=== PATIENT | female | born 1965 | race Caucasian/White ===

== ENCOUNTER 2016-12-30 07:55 | Emergency (ER) | payer OTHER ==
[~2016-12-30 07:55] MED LIST: AMARYL2 MG PO; CEFDINIR300 MG PO; CLARITIN10 MG PO; COLACE100 MG PO; DESYREL50 MG PO; ELAVIL25 MG PO; GLUCOPHAGE XR750 MG PO; IMITREX100 MG PO; LIPITOR10 MG PO; NEURONTIN300 MG PO; PRILOSEC40 MG PO; PROAIR HFA8.5 GM INH; SEROQUEL400 MG PO; SYMBICORT 1601 PUFFS INH; TOPAMAX50 MG PO; VISTARIL50 MG PO; VITAMIN D2000 UNI1 PO; ZANTAC150 MG PO; ZESTRIL10 MG PO; ZOFRAN4 MG PO
[2016-12-30 08:49] LABS: BILIRUBIN NEGATIVE (NEGATIVE); BLOOD 3+ Ery/uL (NEGATIVE); GLUCOSE (U) NORMAL (NORMAL); KETONE (U) NEGATIVE (NEGATIVE); LEUKOCYTES 1+ Leu/uL (NEGATIVE); NITRITE NEGATIVE (NEGATIVE); PROTEIN 1+ mg/dL (NEGATIVE); UROBILINOGEN 0.2 mg/dL (0.2-1.0)
[2016-12-30 08:50] LABS: CLARITY HAZY (CLEAR); COLOR AMBER (YELLOW)
[2016-12-30 08:56] LABS: BACTERIA TRACE; URINARY RBC TNTC
== END 2016-12-30 10:00 | disposition home or self-care (01) ==
LOC: FER 07:55
PROVIDERS: Internal Medicine
DX: R51 Headache (principal); F41.9 Anxiety disorder, unspecified; I10 Essential (primary) hypertension; E11.9 Type 2 diabetes mellitus without complications; J45.909 Unspecified asthma, uncomplicated; J44.9 Chronic obstructive pulmonary disease, unspecified; F17.200 Nicotine dependence, unspecified, uncomplicated; Z79.84 Long term (current) use of oral hypoglycemic drugs
CPT/HCPCS: 81001; 99284

== ENCOUNTER 2020-10-15 12:49 | Emergency (ER) | payer OTHER ==
[~2020-10-15 12:49] MED LIST changes: +AMLODIPINE BESYL5 MG PO; +ASPIRIN EC81 M1 PO; +ASPIRIN EC81 MG PO; +ATARAX25 MG PO; +ATORVASTATIN CA20 MG PO; +FIORICET1 EACH PO; +FLEXERIL10 MG PO; +GLIMEPIRIDE4 MG PO; +LIPITOR20 MG PO; +LOSARTAN-HCTZ1 EAC2 PO; +MEDROL 4MG DOSEP4 MG PO; +METFORMIN HCL1000 MG PO; +METOPROLOL SUCC25 MG PO; +METOPROLOL SUCC50 MG PO; +NORVASC 5MG TABL5 MG PO; +PRAVASTATIN SOD10 M1 PO; +TOPROL XL 25MG25 MG PO; +losartan/hctz PO
[2020-10-15 13:22] LABS: EOSINOPHIL 3.9 % (0-5); HCT 40.9 % (37.0-47.0); HGB 12.9 g/dl (12.5-16.0); LYMPHOCYTE 23.1 % (15-48); MCH 27.6 pg (25.0-31.0); MCHC 31.5 g/dL (32.0-36.0); MCV 87.4 fL (78.0-100.0); MONOCYTE 4.7 % (0-12); MPV 9.1 fL (6.0-9.5); NEUTROPHIL 66.7 % (41-80); NRBC 0; PLT 446 K/uL (150-400); RBC 4.68 M/uL (4.20-5.40); RDW 16.7 % (11.5-14.0); WBC 19.7 K/uL (4.0-10.5)
[2020-10-15 13:42] LABS: ALKALINE PHOSHATASE 95 U/L (46-116); ALT 16 U/L (14-59); AST 21 U/L (15-37); BILIRUBIN - TOTAL 0.2 mg/dL (0.2-1.0); BUN 15 mg/dL (7-18); BUN/CREAT RATIO (CALC) 20.3 RATIO; CHLORIDE 97 mmol/L (98-107); CO2 (BICARBONATE) 21 mmol/L (21-32); CREATININE 0.74 mg/dL (0.51-0.95); GLOBULIN (CALCULATION) 3.3 g/dL; GLUCOSE 141 mg/dL (74-106); POTASSIUM 4.2 mmol/L (3.5-5.1); TOTAL PROTEIN 6.3 g/dL (6.4-8.2)
[2020-10-15 13:47] LABS: INR 0.95 (0.9-1.2)
[2020-10-15 13:48] LABS: PTT 32.8 SECONDS (22.2-34.7)
[2020-10-15 13:55] LABS: BILIRUBIN NEGATIVE (NEGATIVE); BLOOD 2+ Ery/uL (NEGATIVE); CLARITY CLEAR (CLEAR); COLOR YELLOW (YELLOW); GLUCOSE (U) TRACE mg/dL (NORMAL); LEUKOCYTES NEGATIVE Leu/uL (NEGATIVE); NITRITE NEGATIVE (NEGATIVE); PROTEIN NEGATIVE (NEGATIVE); SPECIFIC GRAVITY <=1.005 (1.001-1.030); UROBILINOGEN 0.2 mg/dL (0.2-1.0)
[2020-10-15 14:04] LABS: URINARY RBC RARE; URINARY WBC RARE
[2020-10-15 14:05] LABS: AMPHETAMINES NEGATIVE (NEGATIVE); BARBITURATES NEGATIVE (NEGATIVE); ECSTASY (MDMA) NEGATIVE (NEGATIVE); MARIJUANA (THC) POSITIVE (NEGATIVE); METHADONE NEGATIVE (NEGATIVE); OPIATES NEGATIVE (NEGATIVE); OXYCODONE NEGATIVE (NEGATIVE)
[2020-10-15 14:14] LABS: LACTIC ACID 1.7 mmol/L (0.4-1.9)
== END 2020-10-15 16:55 | disposition home or self-care (01) ==
LOC: FER 12:49
PROVIDERS: Nurse Practitioner Family
DX: I95.9 Hypotension, unspecified (principal); R42 Dizziness and giddiness; F19.10 Other psychoactive substance abuse, uncomplicated; I10 Essential (primary) hypertension; E11.9 Type 2 diabetes mellitus without complications; J44.9 Chronic obstructive pulmonary disease, unspecified; E78.5 Hyperlipidemia, unspecified; F17.210 Nicotine dependence, cigarettes, uncomplicated; Z88.5 Allergy status to narcotic agent; Z79.84 Long term (current) use of oral hypoglycemic drugs; Z79.899 Other long term (current) drug therapy
CPT/HCPCS: 36415; 70450; 71046; 80053; 80305; 81001; 83605; 85025; 85610; 85730; 93005; G0480; J7030

== ENCOUNTER 2020-12-30 17:45 | Day surgery (SDCO) | payer OTHER ==
[~2020-12-30] VITALS: Ht 160 cm; Wt 70.3 kg
[2020-12-30 18:45] LABS: BASOPHIL 1.1 % (0-2); EOSINOPHIL 3.4 % (0-5); HCT 42.7 % (37.0-47.0); HGB 13.5 g/dl (12.5-16.0); LYMPHOCYTE 23.7 % (15-48); MCH 27.5 pg (25.0-31.0); MCHC 31.6 g/dL (32.0-36.0); MONOCYTE 5.8 % (0-12); MPV 9.1 fL (6.0-9.5); NEUTROPHIL 65.6 % (41-80); NRBC 0; PLT 482 K/uL (150-400); RBC 4.91 M/uL (4.20-5.40); RDW 17.5 % (11.5-14.0); WBC 9.2 K/uL (4.0-10.5)
[2020-12-30 19:04] LABS: ALBUMIN 3.1 g/dL (3.4-5.0); BILIRUBIN - TOTAL 0.2 mg/dL (0.2-1.0); BUN/CREAT RATIO (CALC) 11.4 RATIO; CREATININE 0.88 mg/dL (0.51-0.95); GLOBULIN (CALCULATION) 3.6 g/dL; TOTAL PROTEIN 6.7 g/dL (6.4-8.2)
[2020-12-30 19:16] LABS: LACTIC ACID 0.8 mmol/L (0.4-1.9)
[2020-12-30 19:22] LABS: BILIRUBIN NEGATIVE (NEGATIVE); BLOOD NEGATIVE Ery/uL (NEGATIVE); CLARITY CLEAR (CLEAR); COLOR YELLOW (YELLOW); GLUCOSE (U) 3+ mg/dL (NORMAL); LEUKOCYTES NEGATIVE Leu/uL (NEGATIVE); NITRITE NEGATIVE (NEGATIVE); PROTEIN NEGATIVE (NEGATIVE); SPECIFIC GRAVITY 1.015 (1.001-1.030); UROBILINOGEN 0.2 mg/dL (0.2-1.0); pH 6.5 (5.0-9.0)
[2020-12-30 19:30] LABS: INFLUENZA A NAA NEGATIVE (NEGATIVE)
[2020-12-30 19:33] LABS: CORONAVIRUS 2019 SARS-COV-2 POSITIVE (NEGATIVE)
[2020-12-30] MEDS ORDERED: METFORMIN HCL500 MG PO (22:45)
[2020-12-30] MEDS ORDERED: HYDROXYZINE HCL25 MG PO (22:45)
[2020-12-30] MEDS ORDERED: TRAZODONE 100M100 MG PO (22:46)
[2020-12-30] MEDS ORDERED: GLIMEPIRIDE4 MG PO (22:46)
[2020-12-30] MEDS ORDERED: PEPCID AC20 MG PO (22:46)
[2020-12-30] MEDS ORDERED: ZOLOFT50 MG PO (22:47)
[2020-12-30] MEDS ORDERED: PRILOSEC20 MG PO (22:47)
[2020-12-30] MEDS ORDERED: PHENERGAN12.5 M1 PO (22:47)
[2020-12-30] MEDS ORDERED: ONDANSETRON HCL4 MG PO (22:48)
[2020-12-30] MEDS ORDERED: COZAAR50 MG PO (22:49)
[2020-12-30] MEDS ORDERED: TOPIRAMATE100 MG PO (22:50)
[2020-12-31 06:59] LABS: BASOPHIL 1.1 % (0-2); EOSINOPHIL 3.9 % (0-5); HGB 11.6 g/dl (12.5-16.0); LYMPHOCYTE 27.6 % (15-48); MCH 27.5 pg (25.0-31.0); MCHC 29.7 g/dL (32.0-36.0); MONOCYTE 5.2 % (0-12); NEUTROPHIL 61.8 % (41-80); NRBC 0; PLT 377 K/uL (150-400); RBC 4.22 M/uL (4.20-5.40); RDW 17.5 % (11.5-14.0); WBC 9.4 K/uL (4.0-10.5)
[2020-12-31 07:03] LABS: MCV 92.4 fL (78.0-100.0)
[2020-12-31 07:14] LABS: ALBUMIN 2.4 g/dL (3.4-5.0); BILIRUBIN - TOTAL 0.1 mg/dL (0.2-1.0); BUN/CREAT RATIO (CALC) 14.7 RATIO; CREATININE 0.68 mg/dL (0.51-0.95); POTASSIUM 4.1 mmol/L (3.5-5.1); TOTAL PROTEIN 5.4 g/dL (6.4-8.2)
[2020-12-31] MEDS ORDERED: DEXAMETHASONE 2M2 MG PO (13:24)
== END 2020-12-31 14:40 | disposition home or self-care (01) ==
LOC: FER 17:45 → FMS 21:16
PROVIDERS: Nurse Practitioner; Nurse Practitioner Family; ADMIT Hospitalist
DX: U07.1 COVID-19 (principal); I95.9 Hypotension, unspecified; J43.9 Emphysema, unspecified; E11.9 Type 2 diabetes mellitus without complications; I10 Essential (primary) hypertension; G43.909 Migraine, unspecified, not intractable, without status migrainosus; E78.5 Hyperlipidemia, unspecified; F17.210 Nicotine dependence, cigarettes, uncomplicated; Z79.84 Long term (current) use of oral hypoglycemic drugs; Z79.899 Other long term (current) drug therapy; Z88.5 Allergy status to narcotic agent
CPT/HCPCS: 36415; 71045; 80053; 81003; 83605; 85025; 87040; 94010; 94640; C9399; G0378; J1100; J1650; J1885; J2405; J7030; J7050; M0245; U0002

== ENCOUNTER 2021-01-14 10:16 | Emergency (ER) | payer OTHER ==
[~2021-01-14 10:16] MED LIST changes: +COZAAR50 MG PO; +DEXAMETHASONE 2M2 MG PO; +HYDROXYZINE HCL25 MG PO; +METFORMIN HCL500 MG PO; +ONDANSETRON HCL4 MG PO; +PEPCID AC20 MG PO; +PHENERGAN12.5 M1 PO; +PRILOSEC20 MG PO; +TOPIRAMATE100 MG PO; +TRAZODONE 100M100 MG PO; +ZOLOFT50 MG PO
[2021-01-14 11:36] LABS: BASOPHIL 0.7 % (0-2); EOSINOPHIL 2.3 % (0-5); HGB 12.7 g/dl (12.5-16.0); LYMPHOCYTE 19.7 % (15-48); MCH 27.7 pg (25.0-31.0); MCHC 31.8 g/dL (32.0-36.0); MCV 87.3 fL (78.0-100.0); MONOCYTE 4.4 % (0-12); MPV 9.6 fL (6.0-9.5); NEUTROPHIL 71.4 % (41-80); NRBC 0; PLT 450 K/uL (150-400); RBC 4.58 M/uL (4.20-5.40); RDW 17.5 % (11.5-14.0); WBC 12.2 K/uL (4.0-10.5)
[2021-01-14 11:46] LABS: ALBUMIN 3.6 g/dL (3.4-5.0); BILIRUBIN - TOTAL 0.2 mg/dL (0.2-1.0); BUN/CREAT RATIO (CALC) 18.6 RATIO; CREATININE 0.86 mg/dL (0.51-0.95); GLOBULIN (CALCULATION) 3.8 g/dL; POTASSIUM 4.4 mmol/L (3.5-5.1); TOTAL PROTEIN 7.4 g/dL (6.4-8.2)
[2021-01-14 11:47] LABS: PRO-BNP 38 pg/mL (<125)
[2021-01-14 11:48] LABS: INR 0.9 (0.9-1.2); PROTHROMBIN TIME 11.5 SECONDS (11.4-13.6); PTT 30.7 SECONDS (22.2-34.7)
[2021-01-14] MEDS ORDERED: TOPROL XL 25MG25 MG PO (14:59)
== END 2021-01-14 15:29 | disposition home or self-care (01) ==
LOC: FER 10:16
PROVIDERS: Emergency Medicine
DX: I95.9 Hypotension, unspecified (principal); R00.0 Tachycardia, unspecified; R00.2 Palpitations; E11.9 Type 2 diabetes mellitus without complications; J44.9 Chronic obstructive pulmonary disease, unspecified; Z88.5 Allergy status to narcotic agent; Z88.6 Allergy status to analgesic agent
CPT/HCPCS: 36415; 71275; 80053; 83880; 84145; 84443; 84484; 85025; 85610; 85730; 93005; J2405; J7030; Q9967

== ENCOUNTER 2021-01-19 18:55 | Emergency (ER) | payer OTHER ==
[2021-01-19 20:31] LABS: BILIRUBIN NEGATIVE (NEGATIVE); BLOOD NEGATIVE Ery/uL (NEGATIVE); CLARITY CLEAR (CLEAR); COLOR YELLOW (YELLOW); GLUCOSE (U) 3+ mg/dL (NORMAL); LEUKOCYTES NEGATIVE Leu/uL (NEGATIVE); NITRITE NEGATIVE (NEGATIVE); PROTEIN NEGATIVE (NEGATIVE); SPECIFIC GRAVITY 1.025 (1.001-1.030)
[2021-01-19 21:08] LABS: BASOPHIL 1.2 % (0-2); EOSINOPHIL 2.8 % (0-5); HCT 41.3 % (37.0-47.0); HGB 13.4 g/dl (12.5-16.0); LYMPHOCYTE 24.4 % (15-48); MCHC 32.4 g/dL (32.0-36.0); MCV 86.2 fL (78.0-100.0); MONOCYTE 5.8 % (0-12); MPV 9.2 fL (6.0-9.5); NEUTROPHIL 65.3 % (41-80); NRBC 0; PLT 546 K/uL (150-400); RBC 4.79 M/uL (4.20-5.40); RDW 18.4 % (11.5-14.0); WBC 12.8 K/uL (4.0-10.5)
[2021-01-19 21:12] LABS: INR 0.96 (0.9-1.2); PROTHROMBIN TIME 12.1 SECONDS (11.4-13.6)
[2021-01-19 21:24] LABS: ALBUMIN 3.2 g/dL (3.4-5.0); BILIRUBIN - TOTAL 0.3 mg/dL (0.2-1.0); BUN/CREAT RATIO (CALC) 22.1 RATIO; CREATININE 0.77 mg/dL (0.51-0.95); GLOBULIN (CALCULATION) 3.6 g/dL; TOTAL PROTEIN 6.8 g/dL (6.4-8.2)
[2021-01-19 21:31] LABS: LACTIC ACID 2.8 mmol/L (0.4-1.9)
== END 2021-01-19 23:35 | disposition home or self-care (01) ==
LOC: FER 18:55
PROVIDERS: Emergency Medicine
DX: K59.00 Constipation, unspecified (principal); R11.0 Nausea; F17.200 Nicotine dependence, unspecified, uncomplicated; Z88.5 Allergy status to narcotic agent; Z87.19 Personal history of other diseases of the digestive system
CPT/HCPCS: 36415; 71045; 80053; 81003; 82150; 83605; 83690; 84484; 85025; 85610; 87040; 93005; C9113; J0696; J1170; J2405; J7030; Q9967

== ENCOUNTER 2021-02-06 20:20 | Inpatient (IN) | payer OTHER ==
[~2021-02-06] VITALS: Ht 160 cm; Wt 69.4 kg
[2021-02-06 21:29] LABS: EOSINOPHIL 3.4 % (0-5); HCT 36.5 % (37.0-47.0); HGB 11.5 g/dl (12.5-16.0); MCH 28.3 pg (25.0-31.0); MCHC 31.5 g/dL (32.0-36.0); MCV 89.7 fL (78.0-100.0); MONOCYTE 6.9 % (0-12); MPV 8.9 fL (6.0-9.5); NEUTROPHIL 49.5 % (41-80); NRBC 0; PLT 404 K/uL (150-400); RBC 4.07 M/uL (4.20-5.40); RDW 18.7 % (11.5-14.0); WBC 10.6 K/uL (4.0-10.5)
[2021-02-06 22:02] LABS: ALBUMIN 2.8 g/dL (3.4-5.0); BILIRUBIN - TOTAL 0.2 mg/dL (0.2-1.0); BUN/CREAT RATIO (CALC) 17.3 RATIO; CREATININE 1.27 mg/dL (0.51-0.95); GLOBULIN (CALCULATION) 3.2 g/dL; POTASSIUM 3.7 mmol/L (3.5-5.1)
[2021-02-06 22:08] LABS: PRO-BNP 22 pg/mL (<125)
[2021-02-06 22:10] LABS: LACTIC ACID 2.4 mmol/L (0.4-1.9)
[2021-02-07 00:40] LABS: BILIRUBIN 1+ mg/dL (NEGATIVE); BLOOD 3+ Ery/uL (NEGATIVE); CLARITY CLOUDY (CLEAR); COLOR YELLOW (YELLOW); GLUCOSE (U) NORMAL (NORMAL); LEUKOCYTES TRACE Leu/uL (NEGATIVE); NITRITE POSITIVE (NEGATIVE); PROTEIN 1+ mg/dL (NEGATIVE); SPECIFIC GRAVITY 1.025 (1.001-1.030); pH 5.5 (5.0-9.0)
[2021-02-07 00:49] LABS: BACTERIA 4+
[2021-02-07 00:50] LABS: AMORPHOUS URATES CRYSTALS TRACE
[2021-02-07] MEDS ORDERED: ATARAX25 MG PO (05:59)
[2021-02-07] MEDS ORDERED: XANAX0.5 MG PO (05:59)
[2021-02-07] MEDS ORDERED: NEURONTIN300 MG PO (06:00)
[2021-02-07] MEDS ORDERED: LIPITOR40 MG PO (06:00)
[2021-02-07] MEDS ORDERED: COZAAR50 MG PO (06:01)
[2021-02-08 04:40] LABS: BASOPHIL 1.1 % (0-2); EOSINOPHIL 4.3 % (0-5); HCT 30.9 % (37.0-47.0); HGB 9.9 g/dl (12.5-16.0); LYMPHOCYTE 36.5 % (15-48); MCH 28.4 pg (25.0-31.0); MCV 88.5 fL (78.0-100.0); MONOCYTE 5.7 % (0-12); MPV 9.3 fL (6.0-9.5); NEUTROPHIL 52.1 % (41-80); NRBC 0; PLT 337 K/uL (150-400); RBC 3.49 M/uL (4.20-5.40); RDW 18.3 % (11.5-14.0); WBC 6.1 K/uL (4.0-10.5)
[2021-02-08 05:03] LABS: BUN/CREAT RATIO (CALC) 20.3 RATIO; CREATININE 0.64 mg/dL (0.51-0.95); POTASSIUM 3.6 mmol/L (3.5-5.1)
--- NOTE | 2021-02-08 12:07 | NUR ---
ORTHOSTATIC VS: LYING 139/77 HEART RATE 85 SITTING 141/86 HEART RATE 95 STANDING 146/68 HEART RATE 97
[2021-02-08] MEDS ORDERED: CEFDINIR300 MG PO (14:07)
[2021-02-08] MEDS ORDERED: BACLOFEN 10MG T10 MG PO (14:09)
== END 2021-02-08 14:48 | disposition home or self-care (01) | DRG 872 ==
LOC: FER 20:20 → FTCU 02-07 03:30
PROVIDERS: Emergency Medicine; Hospitalist; ADMIT Hospitalist
DX: A41.9 Sepsis, unspecified organism (principal); N30.00 Acute cystitis without hematuria; N17.9 Acute kidney failure, unspecified; R65.20 Severe sepsis without septic shock; I95.9 Hypotension, unspecified; E86.0 Dehydration; E86.9 Volume depletion, unspecified; J44.9 Chronic obstructive pulmonary disease, unspecified; E11.9 Type 2 diabetes mellitus without complications; K21.9 Gastro-esophageal reflux disease without esophagitis; E78.5 Hyperlipidemia, unspecified; F41.9 Anxiety disorder, unspecified; M19.90 Unspecified osteoarthritis, unspecified site; E78.00 Pure hypercholesterolemia, unspecified; I48.91 Unspecified atrial fibrillation; F31.9 Bipolar disorder, unspecified; G43.909 Migraine, unspecified, not intractable, without status migrainosus; I10 Essential (primary) hypertension; F17.210 Nicotine dependence, cigarettes, uncomplicated; F43.10 Post-traumatic stress disorder, unspecified; Z88.5 Allergy status to narcotic agent; Z88.6 Allergy status to analgesic agent; Z86.16 Personal history of COVID-19; Z90.49 Acquired absence of other specified parts of digestive tract; Z98.51 Tubal ligation status; Z79.84 Long term (current) use of oral hypoglycemic drugs; Z79.52 Long term (current) use of systemic steroids; Z79.899 Other long term (current) drug therapy
CPT/HCPCS: 36415; 70450; 71045; 80048; 80053; 81001; 82962; 83605; 83880; 84484; 85025; 93005; 94640; J0692; J0696; J1650; J1885; J7030

== ENCOUNTER 2021-05-06 16:01 | Emergency (ER) | payer OTHER ==
[~2021-05-06 16:01] MED LIST changes: +BACLOFEN 10MG T10 MG PO; +LIPITOR40 MG PO; +XANAX0.5 MG PO
[2021-05-06 16:29] LABS: BASOPHIL 0.6 % (0-2); EOSINOPHIL 0.3 % (0-5); HCT 37.4 % (37.0-47.0); HGB 11.8 g/dl (12.5-16.0); LYMPHOCYTE 2.3 % (15-48); MCH 26.8 pg (25.0-31.0); MCHC 31.6 g/dL (32.0-36.0); MCV 84.8 fL (78.0-100.0); MONOCYTE 4.1 % (0-12); MPV 9.7 fL (6.0-9.5); NEUTROPHIL 90.3 % (41-80); NRBC 0; PLT 351 K/uL (150-400); RBC 4.41 M/uL (4.20-5.40); RDW 17.5 % (11.5-14.0)
[2021-05-06 16:50] LABS: WBC 25.5 K/uL (4.0-10.5)
[2021-05-06 17:35] LABS: ALBUMIN 2.2 g/dL (3.4-5.0); BILIRUBIN - TOTAL 0.2 mg/dL (0.2-1.0); BUN/CREAT RATIO (CALC) 16.8 RATIO; CREATININE 2.74 mg/dL (0.51-0.95); GLOBULIN (CALCULATION) 3.7 g/dL; POTASSIUM 4.1 mmol/L (3.5-5.1); TOTAL PROTEIN 5.9 g/dL (6.4-8.2)
[2021-05-06 17:41] LABS: PRO-BNP 1159 pg/mL (<125)
[2021-05-06 18:27] LABS: BILIRUBIN NEGATIVE (NEGATIVE); BLOOD 2+ Ery/uL (NEGATIVE); CLARITY CLEAR (CLEAR); COLOR YELLOW (YELLOW); GLUCOSE (U) NORMAL (NORMAL); LEUKOCYTES 3+ Leu/uL (NEGATIVE); NITRITE NEGATIVE (NEGATIVE); PROTEIN 2+ mg/dL (NEGATIVE); UROBILINOGEN 0.2 mg/dL (0.2-1.0); pH 5.5 (5.0-9.0)
[2021-05-06 18:33] LABS: URINARY RBC 20-50; URINARY WBC TNTC
[2021-05-06 18:34] LABS: BACTERIA 4+
== END 2021-05-07 00:32 | disposition other institution (70) ==
LOC: FER 16:01
PROVIDERS: Emergency Medicine
DX: A41.9 Sepsis, unspecified organism (principal); E11.9 Type 2 diabetes mellitus without complications; R65.21 Severe sepsis with septic shock; N17.9 Acute kidney failure, unspecified; J44.9 Chronic obstructive pulmonary disease, unspecified; F17.210 Nicotine dependence, cigarettes, uncomplicated; Z88.6 Allergy status to analgesic agent; Z88.5 Allergy status to narcotic agent; Z20.822 Contact with and (suspected) exposure to COVID-19
CPT/HCPCS: 36415; 71045; 71250; 80053; 81001; 83605; 83880; 84145; 84484; 85025; 85379; 86140; 87040; 87076; 87077; 87088; 87186; 93005; J2405; J2543; J3010; J7030; J7060; U0002

== ENCOUNTER 2021-05-23 18:30 | Inpatient (IN) | payer OTHER ==
[~2021-05-23] VITALS: Ht 157.5 cm; Wt 63.3 kg
[2021-05-23 18:53] LABS: BASOPHIL 0.4 % (0-2); EOSINOPHIL 0.2 % (0-5); HCT 29.2 % (37.0-47.0); HGB 9.3 g/dl (12.5-16.0); LYMPHOCYTE 3.2 % (15-48); MCHC 31.8 g/dL (32.0-36.0); MCV 84.6 fL (78.0-100.0); MONOCYTE 4.8 % (0-12); MPV 9.6 fL (6.0-9.5); NEUTROPHIL 90.2 % (41-80); NRBC 0; PLT 550 K/uL (150-400); RBC 3.45 M/uL (4.20-5.40); RDW 18.7 % (11.5-14.0); WBC 23.9 K/uL (4.0-10.5)
[2021-05-23 19:18] LABS: ALBUMIN 2.3 g/dL (3.4-5.0); BILIRUBIN - TOTAL 0.3 mg/dL (0.2-1.0); BUN/CREAT RATIO (CALC) 23.8 RATIO; CREATININE 1.3 mg/dL (0.51-0.95); GLOBULIN (CALCULATION) 4.6 g/dL; POTASSIUM 3.3 mmol/L (3.5-5.1); TOTAL PROTEIN 6.9 g/dL (6.4-8.2)
[2021-05-23 19:36] LABS: CORONAVIRUS 2019 SARS-COV-2 NEGATIVE (NEGATIVE); INFLUENZA A NAA NEGATIVE (NEGATIVE)
[2021-05-23 20:33] LABS: BILIRUBIN NEGATIVE (NEGATIVE); BLOOD NEGATIVE Ery/uL (NEGATIVE); CLARITY HAZY (CLEAR); COLOR YELLOW (YELLOW); GLUCOSE (U) 3+ mg/dL (NORMAL); LEUKOCYTES 1+ Leu/uL (NEGATIVE); NITRITE POSITIVE (NEGATIVE); PROTEIN NEGATIVE (NEGATIVE); UROBILINOGEN 0.2 mg/dL (0.2-1.0)
[2021-05-23 20:39] LABS: BACTERIA 4+; SQUAMOUS EPITHELIAL CELLS 20-50
[2021-05-23 20:58] LABS: IRON % SATURATION 4.1 %SAT (20-50)
[2021-05-24 05:14] LABS: BASOPHIL 0.5 % (0-2); EOSINOPHIL 0 % (0-5); HGB 9.2 g/dl (12.5-16.0); LYMPHOCYTE 2.9 % (15-48); MCH 26.3 pg (25.0-31.0); MCHC 30.7 g/dL (32.0-36.0); MCV 85.7 fL (78.0-100.0); MONOCYTE 0.6 % (0-12); MPV 9.4 fL (6.0-9.5); NRBC 0; PLT 558 K/uL (150-400); RDW 18.6 % (11.5-14.0); WBC 21.6 K/uL (4.0-10.5)
[2021-05-24 06:06] LABS: ALBUMIN 2.1 g/dL (3.4-5.0); BILIRUBIN - TOTAL 0.3 mg/dL (0.2-1.0); BUN/CREAT RATIO (CALC) 25.4 RATIO; CREATININE 1.18 mg/dL (0.51-0.95); GLOBULIN (CALCULATION) 4.5 g/dL; POTASSIUM 3.9 mmol/L (3.5-5.1); TOTAL PROTEIN 6.6 g/dL (6.4-8.2)
[2021-05-24 11:51] LABS: LACTIC ACID 3.3 mmol/L (0.4-1.9)
[2021-05-24] MEDS ORDERED: TRAMADOL HCL50 MG PO (20:39)
[2021-05-25 04:58] LABS: BASOPHIL 0.3 % (0-2); EOSINOPHIL 0.4 % (0-5); HCT 26.3 % (37.0-47.0); HGB 8.3 g/dl (12.5-16.0); LYMPHOCYTE 12.7 % (15-48); MCH 27.1 pg (25.0-31.0); MCHC 31.6 g/dL (32.0-36.0); MCV 85.9 fL (78.0-100.0); MONOCYTE 4.7 % (0-12); MPV 9.3 fL (6.0-9.5); NEUTROPHIL 81.2 % (41-80); NRBC 0; PLT 476 K/uL (150-400); RBC 3.06 M/uL (4.20-5.40); RDW 18.8 % (11.5-14.0); WBC 13.8 K/uL (4.0-10.5)
[2021-05-25 05:19] LABS: ALBUMIN 2.1 g/dL (3.4-5.0); BILIRUBIN - TOTAL 0.3 mg/dL (0.2-1.0); CREATININE 0.87 mg/dL (0.51-0.95); GLOBULIN (CALCULATION) 4.1 g/dL; MAGNESIUM 1.6 mg/dL (1.8-2.4); POTASSIUM 3.1 mmol/L (3.5-5.1); TOTAL PROTEIN 6.2 g/dL (6.4-8.2)
[2021-05-25] MEDS ORDERED: SENEXON-S 50-81 EACH PO (08:29)
[2021-05-25] MEDS ORDERED: AMITIZA8 MCG PO (08:30)
[2021-05-26 04:11] LABS: EOSINOPHIL 2.4 % (0-5); HCT 24.9 % (37.0-47.0); HGB 7.5 g/dl (12.5-16.0); LYMPHOCYTE 23.3 % (15-48); MCH 26.4 pg (25.0-31.0); MCHC 30.1 g/dL (32.0-36.0); MCV 87.7 fL (78.0-100.0); MONOCYTE 7.5 % (0-12); MPV 9.1 fL (6.0-9.5); NEUTROPHIL 65.3 % (41-80); NRBC 0; PLT 384 K/uL (150-400); RBC 2.84 M/uL (4.20-5.40); RDW 19.4 % (11.5-14.0); WBC 9.2 K/uL (4.0-10.5)
[2021-05-26 04:29] LABS: BILIRUBIN - TOTAL 0.2 mg/dL (0.2-1.0); BUN/CREAT RATIO (CALC) 11.8 RATIO; CREATININE 0.76 mg/dL (0.51-0.95); MAGNESIUM 1.8 mg/dL (1.8-2.4); POTASSIUM 4.2 mmol/L (3.5-5.1)
[2021-05-27 05:12] LABS: BASOPHIL 0.8 % (0-2); EOSINOPHIL 0.1 % (0-5); HGB 8.2 g/dl (12.5-16.0); LYMPHOCYTE 15.3 % (15-48); MCH 26.6 pg (25.0-31.0); MCHC 30.4 g/dL (32.0-36.0); MCV 87.7 fL (78.0-100.0); MONOCYTE 3.2 % (0-12); MPV 9.7 fL (6.0-9.5); NEUTROPHIL 78.2 % (41-80); NRBC 0; PLT 430 K/uL (150-400); RBC 3.08 M/uL (4.20-5.40); RDW 19.2 % (11.5-14.0); WBC 7.8 K/uL (4.0-10.5)
[2021-05-27 05:57] LABS: BUN/CREAT RATIO (CALC) 16.2 RATIO; CREATININE 0.68 mg/dL (0.51-0.95); POTASSIUM 4.9 mmol/L (3.5-5.1)
[2021-05-27] MEDS ORDERED: DOXYCYCLINE MO100 MG PO (12:16)
[2021-05-27] MEDS ORDERED: POLY-IRON150 MG PO (12:16)
== END 2021-05-27 11:44 | disposition home or self-care (01) | DRG 871 ==
LOC: FER 18:30 → FTCU 05-24 00:08 → FMS 05-24 00:08 → FTCU 05-24 01:27 → FMS 05-25 12:06
PROVIDERS: Emergency Medicine; Emergency Medicine Emergency Medical Services; Internal Medicine; Nurse Practitioner; ADMIT Family Medicine
PROC: 3E033XZ Introduction of Vasopressor into Peripheral Vein, Percutaneous Approach (ICD-10-PCS; principal; 2021-05-24)
DX: A41.51 Sepsis due to Escherichia coli [E. coli] (principal); R65.21 Severe sepsis with septic shock; G93.41 Metabolic encephalopathy; N30.00 Acute cystitis without hematuria; N17.9 Acute kidney failure, unspecified; Z20.822 Contact with and (suspected) exposure to COVID-19; D50.9 Iron deficiency anemia, unspecified; R94.31 Abnormal electrocardiogram [ECG] [EKG]; M54.50 Low back pain, unspecified; E87.6 Hypokalemia; E83.42 Hypomagnesemia; I12.9 Hypertensive chronic kidney disease with stage 1 through stage 4 chronic kidney disease, or unspecified chronic kidney disease; N18.30 Chronic kidney disease, stage 3 unspecified; E11.22 Type 2 diabetes mellitus with diabetic chronic kidney disease; J44.9 Chronic obstructive pulmonary disease, unspecified; F31.9 Bipolar disorder, unspecified; G43.909 Migraine, unspecified, not intractable, without status migrainosus; F41.9 Anxiety disorder, unspecified; E78.5 Hyperlipidemia, unspecified; F17.200 Nicotine dependence, unspecified, uncomplicated; Z88.6 Allergy status to analgesic agent; Z79.82 Long term (current) use of aspirin; Z88.5 Allergy status to narcotic agent; Z87.440 Personal history of urinary (tract) infections; Z79.84 Long term (current) use of oral hypoglycemic drugs; Z79.899 Other long term (current) drug therapy; Z79.51 Long term (current) use of inhaled steroids; Z80.9 Family history of malignant neoplasm, unspecified; Z82.49 Family history of ischemic heart disease and other diseases of the circulatory system; Z90.49 Acquired absence of other specified parts of digestive tract; Z98.51 Tubal ligation status; Z90.89 Acquired absence of other organs
CPT/HCPCS: 36415; 71045; 80048; 80053; 81001; 82150; 82962; 83540; 83550; 83605; 83735; 84145; 84484; 85025; 87040; 87088; 87186; 93005; 94640; 94760; 94762; 96365; 96366; 96367; 96375; 96376; J1100; J1815; J1885; J2185; J2405; J2543; J2916; J2920; J3010; J3370; J3475; J7030; J7050; J7060; J7120; U0002

== ENCOUNTER 2021-07-01 20:02 | Inpatient (IN) | payer OTHER ==
[~2021-07-01] VITALS: Ht 160 cm; Wt 65.8 kg
[~2021-07-01 20:02] MED LIST changes: +AMITIZA8 MCG PO; +DOXYCYCLINE MO100 MG PO; +POLY-IRON150 MG PO; +SENEXON-S 50-81 EACH PO; +TRAMADOL HCL50 MG PO
[2021-07-01 21:01] LABS: BASOPHIL 0.4 % (0-2); EOSINOPHIL 0.1 % (0-5); HCT 39.7 % (37.0-47.0); HGB 12.7 g/dl (12.5-16.0); LYMPHOCYTE 6.5 % (15-48); MCH 29.2 pg (25.0-31.0); MCV 91.3 fL (78.0-100.0); MONOCYTE 4.9 % (0-12); MPV 9.1 fL (6.0-9.5); NEUTROPHIL 87.3 % (41-80); NRBC 0; PLT 261 K/uL (150-400); RBC 4.35 M/uL (4.20-5.40); RDW 19.1 % (11.5-14.0); WBC 21.7 K/uL (4.0-10.5)
[2021-07-01 21:16] LABS: BILIRUBIN - TOTAL 0.4 mg/dL (0.2-1.0); BUN/CREAT RATIO (CALC) 21.9 RATIO; CREATININE 1.14 mg/dL (0.51-0.95); GLOBULIN (CALCULATION) 4.1 g/dL; TOTAL PROTEIN 7.1 g/dL (6.4-8.2)
[2021-07-01 22:55] LABS: BILIRUBIN NEGATIVE (NEGATIVE); BLOOD TRACE-INTACT Ery/uL (NEGATIVE); COLOR YELLOW (YELLOW); GLUCOSE (U) 3+ mg/dL (NORMAL); LEUKOCYTES 1+ Leu/uL (NEGATIVE); NITRITE POSITIVE (NEGATIVE); PROTEIN TRACE (LOW) mg/dL (NEGATIVE); UROBILINOGEN 0.2 mg/dL (0.2-1.0)
[2021-07-01 23:02] LABS: BACTERIA 2+; URINARY WBC TNTC
[2021-07-01 23:03] LABS: MUCOUS TRACE; SQUAMOUS EPITHELIAL CELLS RARE
[2021-07-01 23:04] LABS: CLARITY HAZY (CLEAR)
[2021-07-02] MEDS ORDERED: WELLBUTRIN75 MG PO (00:35)
[2021-07-02] MEDS ORDERED: RIZATRIPTAN10 MG PO (00:38)
--- NOTE | 2021-07-02 04:33 | NUR ---
UPON ADMISSION TO [facility] UNIT PT REALIZED SHE DIDN'T HAVE HER ALBUTEROL INHALER THAT SHE HAD WITH HER IN THE ER. NURSE CALLED WHILE STILL IN ROOM AT BEDSIDE. NURSE RECHECKED IN 3 HOURS TO SEE IF IT HAD BEEN FOUND BUT IT HAS NOT BEEN FOUND YET
[2021-07-02 05:57] LABS: BASOPHIL 0.3 % (0-2); EOSINOPHIL 0.2 % (0-5); HCT 35.5 % (37.0-47.0); HGB 11.3 g/dl (12.5-16.0); LYMPHOCYTE 4.5 % (15-48); MCH 29.5 pg (25.0-31.0); MCHC 31.8 g/dL (32.0-36.0); MCV 92.7 fL (78.0-100.0); MONOCYTE 4.4 % (0-12); NEUTROPHIL 89.2 % (41-80); NRBC 0; PLT 214 K/uL (150-400); RBC 3.83 M/uL (4.20-5.40); WBC 16.2 K/uL (4.0-10.5)
[2021-07-02 07:01] LABS: ALBUMIN 2.4 g/dL (3.4-5.0); BILIRUBIN - TOTAL 0.5 mg/dL (0.2-1.0); BUN/CREAT RATIO (CALC) 25.5 RATIO; CREATININE 1.06 mg/dL (0.51-0.95); GLOBULIN (CALCULATION) 3.2 g/dL; PHOSPHORUS 3.7 mg/dL (2.6-4.7); POTASSIUM 3.8 mmol/L (3.5-5.1); TOTAL PROTEIN 5.6 g/dL (6.4-8.2)
[2021-07-02 07:04] LABS: MAGNESIUM 2.4 mg/dL (1.8-2.4)
[2021-07-02 15:09] LABS: IRON % SATURATION 2.7 %SAT (20-50)
--- NOTE | 2021-07-02 15:50 | NUR ---
07/02/21 Ms. Bonds, her spouse and adult son share a home together. They share the household expenses. Mr. Bonds receives SSD and the son is employed. Ms. Bonds has been off from her [employer] job since May. She was previously provided with financial resources. Ms. Bonds reports to be using the [employer].
[2021-07-03 03:37] LABS: BASOPHIL 0.4 % (0-2); EOSINOPHIL 1.5 % (0-5); HCT 35.6 % (37.0-47.0); HGB 11.1 g/dl (12.5-16.0); LYMPHOCYTE 11.4 % (15-48); MCH 29.6 pg (25.0-31.0); MCHC 31.2 g/dL (32.0-36.0); MCV 94.9 fL (78.0-100.0); MPV 9.8 fL (6.0-9.5); NEUTROPHIL 81.7 % (41-80); NRBC 0; PLT 185 K/uL (150-400); RBC 3.75 M/uL (4.20-5.40); RDW 19.6 % (11.5-14.0); WBC 10.8 K/uL (4.0-10.5)
[2021-07-03 03:50] LABS: ALKALINE PHOSHATASE 163 U/L (46-116); ALT 50 U/L (14-59); AST 34 U/L (15-37); BILIRUBIN - TOTAL 0.4 mg/dL (0.2-1.0); BUN 28 mg/dL (7-18); BUN/CREAT RATIO (CALC) 25.5 RATIO; C-REACTIVE PROTEIN > 18.00 mg/dL (<=0.90); CHLORIDE 105 mmol/L (98-107); CO2 (BICARBONATE) 24 mmol/L (21-32); GLOBULIN (CALCULATION) 4.1 g/dL; GLUCOSE 211 mg/dL (74-106); MAGNESIUM 2.5 mg/dL (1.8-2.4); POTASSIUM 3.6 mmol/L (3.5-5.1); TOTAL PROTEIN 6.1 g/dL (6.4-8.2)
[2021-07-04 06:03] LABS: BASOPHIL 0.2 % (0-2); EOSINOPHIL 0 % (0-5); HCT 35.9 % (37.0-47.0); HGB 11.1 g/dl (12.5-16.0); LYMPHOCYTE 7.7 % (15-48); MCH 28.8 pg (25.0-31.0); MCHC 30.9 g/dL (32.0-36.0); MCV 93.2 fL (78.0-100.0); NEUTROPHIL 87.8 % (41-80); NRBC 0; PLT 159 K/uL (150-400); RBC 3.85 M/uL (4.20-5.40); RDW 18.9 % (11.5-14.0); WBC 8.7 K/uL (4.0-10.5)
[2021-07-04 06:19] LABS: ALBUMIN 2.3 g/dL (3.4-5.0); BILIRUBIN - TOTAL 0.2 mg/dL (0.2-1.0); BUN/CREAT RATIO (CALC) 27.7 RATIO; CREATININE 0.83 mg/dL (0.51-0.95); GLOBULIN (CALCULATION) 4.4 g/dL; POTASSIUM 3.8 mmol/L (3.5-5.1); TOTAL PROTEIN 6.7 g/dL (6.4-8.2); VANCOMYCIN, TROUGH 6.7 ug/mL (10-20)
[2021-07-05 06:52] LABS: BASOPHIL 0.4 % (0-2); EOSINOPHIL 1.4 % (0-5); HCT 33.1 % (37.0-47.0); HGB 10.4 g/dl (12.5-16.0); LYMPHOCYTE 17.2 % (15-48); MCH 28.9 pg (25.0-31.0); MCHC 31.4 g/dL (32.0-36.0); MCV 91.9 fL (78.0-100.0); MONOCYTE 7.1 % (0-12); MPV 9.5 fL (6.0-9.5); NEUTROPHIL 73.4 % (41-80); NRBC 0; PLT 254 K/uL (150-400); WBC 10.4 K/uL (4.0-10.5)
[2021-07-05 07:56] LABS: ALBUMIN 2.2 g/dL (3.4-5.0); BILIRUBIN - TOTAL 0.3 mg/dL (0.2-1.0); BUN/CREAT RATIO (CALC) 18.1 RATIO; C-REACTIVE PROTEIN 10.1 mg/dL (<=0.90); CREATININE 0.72 mg/dL (0.51-0.95); GLOBULIN (CALCULATION) 3.9 g/dL; POTASSIUM 3.7 mmol/L (3.5-5.1); TOTAL PROTEIN 6.1 g/dL (6.4-8.2)
[2021-07-05] MEDS ORDERED: LACTOBACILLUS1 EACH PO (09:25)
[2021-07-05] MEDS ORDERED: BACTRIM DS TAB1 EACH PO (09:25)
[2021-07-05] MEDS ORDERED: SENOKOT8.6 MG PO (09:33)
[2021-07-05] MEDS ORDERED: MIRALAX 238GM238 GM PO (09:33)
== END 2021-07-05 10:40 | disposition home or self-care (01) | DRG 872 ==
LOC: FER 20:02 → FMS 23:21
PROVIDERS: Nurse Practitioner; Physician Assistant; ADMIT Family Medicine
DX: A41.51 Sepsis due to Escherichia coli [E. coli] (principal); N30.01 Acute cystitis with hematuria; N17.9 Acute kidney failure, unspecified; Z20.822 Contact with and (suspected) exposure to COVID-19; R65.20 Severe sepsis without septic shock; D50.9 Iron deficiency anemia, unspecified; E11.22 Type 2 diabetes mellitus with diabetic chronic kidney disease; N18.30 Chronic kidney disease, stage 3 unspecified; D63.1 Anemia in chronic kidney disease; J44.9 Chronic obstructive pulmonary disease, unspecified; I12.9 Hypertensive chronic kidney disease with stage 1 through stage 4 chronic kidney disease, or unspecified chronic kidney disease; F31.9 Bipolar disorder, unspecified; D41.9 Neoplasm of uncertain behavior of unspecified urinary organ; G43.909 Migraine, unspecified, not intractable, without status migrainosus; E78.5 Hyperlipidemia, unspecified; F17.210 Nicotine dependence, cigarettes, uncomplicated; E87.6 Hypokalemia; E83.42 Hypomagnesemia; Z88.5 Allergy status to narcotic agent; Z88.6 Allergy status to analgesic agent; Z79.84 Long term (current) use of oral hypoglycemic drugs; Z79.899 Other long term (current) drug therapy; Z90.49 Acquired absence of other specified parts of digestive tract; Z98.51 Tubal ligation status; Z90.89 Acquired absence of other organs
CPT/HCPCS: 36415; 71045; 80053; 80202; 81001; 82550; 82607; 82728; 82962; 83036; 83540; 83550; 83605; 83735; 84100; 84145; 84484; 85025; 86140; 87040; 87076; 87077; 87088; 87186; 93005; 94640; 94760; 94762; J1170; J1650; J1815; J2185; J2405; J2930; J3370; J3475; J7030; J7050; U0002

== ENCOUNTER 2022-04-12 19:34 | Emergency (ER) | payer OTHER ==
[~2022-04-12 19:34] MED LIST changes: +BACTRIM DS TAB1 EACH PO; +LACTOBACILLUS1 EACH PO; +MIRALAX 238GM238 GM PO; +RIZATRIPTAN10 MG PO; +SENOKOT8.6 MG PO; +WELLBUTRIN75 MG PO
[2022-04-12 21:16] LABS: CORONAVIRUS 2019 SARS-COV-2 NEGATIVE (NEGATIVE); INFLUENZA A NAA NEGATIVE (NEGATIVE)
[2022-04-12 21:23] LABS: BASOPHIL 0.6 % (0-2); EOSINOPHIL 0.9 % (0-5); HCT 47.3 % (37.0-47.0); HGB 15.5 g/dl (12.5-16.0); LYMPHOCYTE 13.5 % (15-48); MCH 28.7 pg (25.0-31.0); MCHC 32.8 g/dL (32.0-36.0); MCV 87.4 fL (78.0-100.0); MONOCYTE 4.6 % (0-12); MPV 9.2 fL (6.0-9.5); NEUTROPHIL 79.7 % (41-80); NRBC 0; PLT 417 K/uL (150-400); RBC 5.41 M/uL (4.20-5.40); RDW 14.1 % (11.5-14.0); WBC 19.9 K/uL (4.0-10.5)
[2022-04-12 22:13] LABS: ALBUMIN 3.4 g/dL (3.4-5.0); BILIRUBIN - TOTAL 0.4 mg/dL (0.2-1.0); GLOBULIN (CALCULATION) 3.5 g/dL; POTASSIUM 2.9 mmol/L (3.5-5.1); TOTAL PROTEIN 6.9 g/dL (6.4-8.2)
[2022-04-12 23:42] LABS: INR 0.98 (0.9-1.2); PROTHROMBIN TIME 12.7 SECONDS (11.9-13.9); PTT 29.8 SECONDS (24.9-34.6)
[2022-04-13 00:07] LABS: LACTIC ACID 1.4 mmol/L (0.4-1.9)
== END 2022-04-13 06:00 | disposition other institution (70) ==
LOC: FER 19:34
PROVIDERS: Emergency Medicine
DX: I21.4 Non-ST elevation (NSTEMI) myocardial infarction (principal); I10 Essential (primary) hypertension; E78.5 Hyperlipidemia, unspecified; J44.9 Chronic obstructive pulmonary disease, unspecified; F17.200 Nicotine dependence, unspecified, uncomplicated; Z28.310 Unvaccinated for COVID-19; Z20.822 Contact with and (suspected) exposure to COVID-19; Z88.5 Allergy status to narcotic agent; Z79.899 Other long term (current) drug therapy
CPT/HCPCS: 36415; 80053; 83605; 83690; 84484; 85025; 85610; 85730; 87040; 93005; J0692; J1170; J1644; J2405; J3475; J3480; J7030; J7050; Q9967; U0002